=== PATIENT | female | born 1950 | race Caucasian/White ===

== ENCOUNTER → 2017-03-10 | Outpatient (CLI) | payer OTHER | LOC: FIMAGING 10:50 | PROVIDERS: ATTEND Internal Medicine | DX: Z12.31 Encounter for screening mammogram for malignant neoplasm of breast (principal); Z80.3 Family history of malignant neoplasm of breast | CPT/HCPCS: G0202 ==

== ENCOUNTER → 2018-02-09 | Outpatient (CLI) | payer OTHER | LOC: FIMAGING 07:17 | PROVIDERS: ATTEND Radiology Diagnostic Radiology | DX: Z01.818 Encounter for other preprocedural examination (principal); I83.893 Varicose veins of bilateral lower extremities with other complications ==

== ENCOUNTER → 2018-03-11 | Outpatient (CLI) | payer OTHER | LOC: FIMAGING 08:55 | PROVIDERS: ATTEND Internal Medicine | DX: Z13.820 Encounter for screening for osteoporosis (principal); M81.0 Age-related osteoporosis without current pathological fracture; Z78.0 Asymptomatic menopausal state ==

== ENCOUNTER → 2018-06-05 | Outpatient (CLI) | payer OTHER | LOC: FIMAGING 10:10 | PROVIDERS: ATTEND Internal Medicine Cardiovascular Disease | DX: I25.10 Atherosclerotic heart disease of native coronary artery without angina pectoris (principal); I72.8 Aneurysm of other specified arteries ==

== ENCOUNTER 2018-06-08 07:24 | Day surgery (SDC) | payer OTHER ==
[2018-06-08] MEDS ORDERED: MEPERIDINE 25 MG/ML SYR IVP PRN (07:42)
[2018-06-08] MEDS ORDERED: NS 1,000 ML IV ONE (07:42)
[2018-06-08] MEDS ORDERED: ceFAZolin 2 GM/DEXTROSE 100 ML IV ONE (07:42)
[2018-06-08] MEDS ORDERED: NALOXONE HCL 0.4 MG/ML INJ IVP PRN (07:42)
[2018-06-08] MEDS ORDERED: MIDAZOLAM 2 MG/2 ML VIAL IVP PRN (07:42)
[2018-06-08] MEDS ORDERED: fentaNYL 100 MCG/2 ML INJ IVP PRN (07:42)
[2018-06-08] MEDS ORDERED: FLUMAZENIL 0.5 MG/5 ML MDV IVP PRN (07:42)
[2018-06-08] MEDS ORDERED: HEPARIN 10,000 UNIT/10 ML MDV (1,000 UNIT/ML) IVP PRN (07:42)
[2018-06-08] MEDS ORDERED: ONDANSETRON 4 MG/2 ML VIAL IVP ONE (07:42)
[2018-06-08] MEDS ORDERED: FLUMAZENIL 0.5 MG/5 ML MDV IVP ONE (07:45)
[2018-06-08] MEDS ORDERED: MIDAZOLAM 2 MG/2 ML VIAL ONE ×2 (07:45→10:44)
[2018-06-08] MEDS ORDERED: NALOXONE HCL 0.4 MG/ML INJ ONE (07:45)
[2018-06-08] MEDS ORDERED: CEFAZOLIN 2 GM/DEXTROSE/100 ML BAG IV ONE (07:46)
[2018-06-08] MEDS ORDERED: fentaNYL 100 MCG/2 ML INJ ONE ×2 (07:46→10:44)
[2018-06-08] MEDS ORDERED: ONDANSETRON 4 MG/2 ML VIAL ONE (07:46)
[2018-06-08] MEDS ORDERED: SODIUM TETRADECYL SULFATE 3% 2 ML VIAL IV ONE (07:48)
[2018-06-08] MEDS ORDERED: LIDO/EPI 1% **for epidural** 30 ML SDV ONE (07:48)
[2018-06-08] MEDS ORDERED: NA BICARBONATE 50 MEQ/50 ML VIAL ONE (07:52)
--- NOTE | 2018-06-08 09:56 | PDPROPOC ---
Sedation Plan of Care Sedation Plan of Care: vital signs stable, mental status noted, patient educated of risks, benefits, alternatives, patient can tolerate sedation ASA Classification: ASA 2 Planned drugs: fentanyl, midazolam Mallampati Score: Class 2 Mallampati Reference Image: Patient passed 3-3-2 rule?: Yes
--- NOTE | 2018-06-08 09:56 | PDGENHP ---
History & Physical Chief Complaint: pain and swelling History of Present Illness: extensive bilateral LLE varicose veins Pertinent Past, Social, Family History: HTN, non smoker Relevant Physical Exam: Large RLE varicose veins mapped out. Cardiorespiratory Assessment: rrr, cta
[2018-06-08] MEDS ORDERED: IBUPROFEN 200 MG TAB PO ONE (11:29)
[2018-06-08] MEDS ORDERED: ONDANSETRON DISINTEGRATING 4 MG TAB PO PRN (11:29)
[2018-06-08] MEDS ORDERED: ONDANSETRON 4 MG/2 ML VIAL IVP PRN (11:29)
[2018-06-08] MEDS ORDERED: HYDROCODONE/APAP 5/325 TAB PO PRN (11:29)
[2018-06-08] MEDS ORDERED: NS 1,000 ML IV SCH (11:30)
--- NOTE | 2018-06-08 11:31 | PDRADPN ---
Radiology Procedure Note Date of Procedure: 06/08/18 Radiologist: Mee Ibrahim Anesthesia: IV Sedation Pre-op Diagnosis: RLE VARICOSE VEINS Post-op Diagnosis: SAME Indication: PAIN AND SWELLING Procedure: PHLEBECTOMY, LASER, SCLEROTHERAPY Inf/Abcess present in the surg proc area at time of surgery?: No
[2018-06-08 15:51] VITALS: BP 106/71
== END 2018-06-08 15:48 | disposition home or self-care (01) ==
LOC: FIMAGING 07:24
PROVIDERS: ATTEND Radiology Diagnostic Radiology
DX: I83.93 Asymptomatic varicose veins of bilateral lower extremities (principal)
CPT/HCPCS: J0690; J2250; J2310; J2405; J3010

== ENCOUNTER → 2018-06-17 | Day surgery (SDC) | payer OTHER ==
[~2018-06-17] MED LIST: FLUMAZENIL 0.5 MG/5 ML MDV IVP PRN; HYDROCODONE/APAP 5/325 TAB PO PRN; IBUPROFEN 200 MG TAB PO ONE; LIDO/EPI 1% **for epidural** 30 ML SDV ONE; MIDAZOLAM 2 MG/2 ML VIAL IVP PRN; MIDAZOLAM 2 MG/2 ML VIAL ONE; NALOXONE HCL 0.4 MG/ML INJ IVP PRN; NS 1,000 ML IV ONE; NS 1,000 ML IV SCH; ONDANSETRON 4 MG/2 ML VIAL IVP ONE; ONDANSETRON 4 MG/2 ML VIAL IVP PRN; ONDANSETRON DISINTEGRATING 4 MG TAB PO PRN; POLIDOCANOL 0.5% 2 ML AMP IV ONE; SODIUM TETRADECYL SULFATE 3% 2 ML VIAL IV ONE; ceFAZolin 2 GM/DEXTROSE 100 ML IV ONE; fentaNYL 100 MCG/2 ML INJ IVP PRN; fentaNYL 100 MCG/2 ML INJ ONE
--- NOTE | 2018-06-17 08:37 | PDGENHP ---
History & Physical Chief Complaint: BILATERAL VARICOSITIES History of Present Illness: S/P TREATMENT FOR RT LEG ON 06/08. PRESENTING TODAY FOR TREATMENT OF LT LEG Pertinent Past, Social, Family History: NON SMOKER Relevant Physical Exam: RT LEG BRUISED WITH AREAS OF TRAPPED BLOOD. LEG LEG MAPPED OUT. Cardiorespiratory Assessment: RRR, CTA
--- NOTE | 2018-06-17 10:27 | PDRADPN ---
Radiology Procedure Note Date of Procedure: 06/17/18 Radiologist: Mee Ibrahim Anesthesia: IV Sedation Pre-op Diagnosis: LLE VARICOSE VEINS Post-op Diagnosis: SAME Indication: PAIN AND SWELLING Procedure: ABLATION, PHLEBECTOMY, SCLEROTHERAPY Inf/Abcess present in the surg proc area at time of surgery?: No
[2018-06-17 13:58] VITALS: BP 115/70
== END | disposition home or self-care (01) ==
LOC: FIMAGING 07:31
PROVIDERS: ATTEND Radiology Diagnostic Radiology
DX: I83.812 Varicose veins of left lower extremity with pain (principal); I83.892 Varicose veins of left lower extremity with other complications
CPT/HCPCS: J0690; J2250; J2310; J2405; J3010

== ENCOUNTER → 2018-07-04 | Outpatient (CLI) | payer OTHER | LOC: FIMAGING 15:25 | PROVIDERS: ATTEND Radiology Diagnostic Radiology | DX: Z09 Encounter for follow-up examination after completed treatment for conditions other than malignant neoplasm (principal); I83.91 Asymptomatic varicose veins of right lower extremity ==

== ENCOUNTER → 2018-08-31 | Outpatient (CLI) | payer OTHER ==
[~2018-08-31] MED LIST changes: -FLUMAZENIL 0.5 MG/5 ML MDV IVP PRN; -HYDROCODONE/APAP 5/325 TAB PO PRN; -IBUPROFEN 200 MG TAB PO ONE; +IOPAMIDOL (ISOVUE 370) 100 ML BTL IV ONE; -LIDO/EPI 1% **for epidural** 30 ML SDV ONE; -MIDAZOLAM 2 MG/2 ML VIAL IVP PRN; -MIDAZOLAM 2 MG/2 ML VIAL ONE; -NALOXONE HCL 0.4 MG/ML INJ IVP PRN; -NS 1,000 ML IV ONE; -NS 1,000 ML IV SCH; -ONDANSETRON 4 MG/2 ML VIAL IVP ONE; -ONDANSETRON 4 MG/2 ML VIAL IVP PRN; -ONDANSETRON DISINTEGRATING 4 MG TAB PO PRN; -POLIDOCANOL 0.5% 2 ML AMP IV ONE; -SODIUM TETRADECYL SULFATE 3% 2 ML VIAL IV ONE; -ceFAZolin 2 GM/DEXTROSE 100 ML IV ONE; -fentaNYL 100 MCG/2 ML INJ IVP PRN; -fentaNYL 100 MCG/2 ML INJ ONE
== END ==
LOC: FIMAGING 09:15
PROVIDERS: ATTEND Physician Assistant Medical
DX: I72.8 Aneurysm of other specified arteries (principal); I77.810 Thoracic aortic ectasia
CPT/HCPCS: 74175; Q9967; 82565-PO

== ENCOUNTER → 2018-08-31 | Outpatient (CLI) | payer OTHER | LOC: FIMAGING 09:11 | PROVIDERS: ATTEND Physician Assistant Medical | DX: Z13.6 Encounter for screening for cardiovascular disorders (principal); Z82.49 Family history of ischemic heart disease and other diseases of the circulatory system | CPT/HCPCS: 82565-PO ==